=== PATIENT | male | born 1965 | race Caucasian/White ===

== ENCOUNTER → 2017-08-08 | Outpatient (CLI) | payer OTHER ==
[2017-08-08 12:38] LABS: ALT/SGPT 35 U/L (12-78); AST/SGOT 21 U/L (15-37); BLOOD UREA NITROGEN 16 mg/dl (7-18); BUN/CREATININE RATIO 16.3 (10-20); CALCIUM 9.4 mg/dl (8.5-10.1); CARBON DIOXIDE 28 mmol/L (21-32); CHLORIDE 107 mmol/L (98-107); GLUCOSE 172 mg/dl (70-99); SODIUM 142 mmol/L (136-145)
[2017-08-08 12:41] LABS: ALKALINE PHOSPHATASE 75 U/L (45-117); CHOLESTEROL 192 mg/dl (0-200); CHOLESTEROL/HDL RATIO 4.2; HDL CHOLESTEROL 46 mg/dl; LDL CHOLESTEROL CALCULATED 106 mg/dl; TRIGLYCERIDES 202 mg/dl (0-150); VERY LOW DENSITY LIPOPROT CALC 40 mg/dl
[2017-08-08 13:13] LABS: ESTIMATED AVERAGE GLUCOSE 180 mg/dl; HA1C FLAG Normal (Normal)
== END | disposition home or self-care (01) ==
LOC: C.LABPBG 08:17
PROVIDERS: ATTEND Physician Assistant
DX: Z00.00 Encounter for general adult medical examination without abnormal findings (principal); E11.9 Type 2 diabetes mellitus without complications; E29.1 Testicular hypofunction

== ENCOUNTER → 2017-12-09 | Outpatient (CLI) | payer OTHER ==
[2017-12-10 06:02] LABS: HEMOGLOBIN A1C 7.6 % (4.5-5.6)
== END | disposition home or self-care (01) ==
LOC: C.LABPBG 14:46
PROVIDERS: ATTEND Nurse Practitioner Family
DX: E11.9 Type 2 diabetes mellitus without complications (principal)